=== PATIENT | female | born 1970 | race Caucasian/White ===

== ENCOUNTER 2021-06-12 08:42 | Emergency (ER) | payer OTHER, SELFPAY ==
[2021-06-12 08:55] VITALS: BP 128/86; PULSE 93; RESP 19; TEMP 37.1; O2SAT 94; BMI 34.3
--- NOTE | 2021-06-12 09:06 | XR_ITS ---
WS: [id number] Portable AP upright chest, 06/12/2021 Clinical Data: SOB, COVID + Comparison: None. Findings: No nodules, masses or effusions are seen. The heart is normal. The pulmonary vascularity is not increased. No pneumonia or pneumothorax is seen. XR/XR chest 1V portable [id number] Impression: Negative chest.
--- NOTE | 2021-06-12 09:07 | ED_ITS ---
HPI - COVID General: Chief Complaint: COVID symptoms Stated Complaint: SOB, LOW 02 Time Seen by Provider: 06/12/21 08:51 Triage information: Has fever, cough or shortness of breath . Exposure to COVID + person last 14 days History of Present Illness: HPI Narrative: Covid symptoms since Wednesday. Did test Covid positive with Dr. Garcia's office on Wednesday. Patient is an unvaccinated individual. Said she had lower sats at home but is not requiring oxygen she did contact Dr. Garcia's office via phone and they told her to come to the ER. MD complaint: known COVID positive Prior covid testing: yes, results pending at other location COVID 19 common symptoms: positive fever(s), chills, cough, non-productive cough, dyspnea, body aches and headache(s); negative throat pain, nasal congestion, nausea or vomiting COVID 19 other sytmptoms: negative chest pain Treatment prior to arrival: none COVID Results: No Data to Display Review of Systems Const: Reports: fever(s), chills and body aches Eyes: Denies: change in vision or blurry vision ENMT: Denies: throat pain or nasal congestion Card: Denies: chest pain or dyspnea on exertion Resp: Reports: dyspnea and non-productive cough GI: Denies: abdominal pain, nausea or vomiting Musc: Denies: extremity pain Skin/Breast: Denies: rash Neuro: Reports: headache(s) Psych: Denies: anxiety or depression Ozzy/Lymph: Denies: easy bruising Physical Exam Const: COMMON NORMALS: no acute distress, average body habitus and patient oriented x3 HENMT: COMMON NORMALS: normocephalic HEAD & SCALP: normal to inspection and normocephalic FACE & SINUS: normal facial exam Eye: COMMON NORMALS: conjunctivae normal GENERAL EYE: appearance normal, both eyes and all related structures CONJUNCTIVA: Yes conjunctivae normal Neck/C-Spine: COMMON NORMALS: no JVD Chest: COMMONS NORMALS: normal inspection of the chest Resp: COMMON NORMALS: normal respiratory effort and clear to auscultation bilaterally AUSCULTATION: clear to auscultation bilaterally Cardio: COMMON NORMALS: no JVD, regular rate and regular rhythm RATE: regular rate RHYTHM: regular rhythm GI: COMMON NORMALS: Normal to inspection, nondistended, normoactive bowel sounds present Extremity: COMMON NORMALS: normal to inspection and full ROM Neuro: COMMON NORMALS: patient oriented x3 Course Vital Signs: Vital signs: Vital Signs Temperature 98.7 F 06/12/21 09:19 Pulse Rate 89 06/12/21 10:05 Respiratory Rate 18 06/12/21 09:19 Blood Pressure 130/93 06/12/21 10:05 Pulse Oximetry 95 06/12/21 10:05 MDM - COVID MDM Narrative: Medical decision making narrative: Patient with symptoms for Covid since Wednesday diagnosed positive on Wednesday she called her provider's office today because she said she is feeling shortness of breath advised her she come to the ER. Vital signs are stable. Saturations stayed in the high 90s whole time here. Chest x-ray was negative. Patient already been contacted with Covid hotline through Dr. Garcia's office. Patient is going to pursue getting MCA. Patient discharged home with steroid. COVID Results: No Data to Display Discharge Plan Discharge Patient Disposition: Home Clinical Impression: COVID-19 Condition: Stable Prescriptions: New Decadron 6 mg tablet 6 mg PO DAILY Qty: 7 RF: 0 Discharge Orders: Discharge ED (Routine); Ordered 06/12/21 Ordered By: Nile Burris Referrals: Anibal Garza MD [Primary Care Provider] - Discharge Diet: Usual diet Discharge Activity: Increase activity as tolerated Patient Instructions: COVID-19 (Coronavirus Disease 2019) (ED) Activity Restrictions/Additional Instructions: Follow-up with medical provider as directed. Take medications as prescribed. Return to the ER or your medical provider if condition worsens. Please read and understand discharge instructions. If any questions ask please. Please call the Covid hotline here at the hospital to get set up for monoclonal antibody infusion if you so desire. Coding Level of Care Code ED Cellars Supervisor for Tasha Fwd Exam Comprehensive
[2021-06-12 09:19] VITALS: BP 118/60; PULSE 84; RESP 18; TEMP 37.1; O2SAT 94; O2SAT 95
[2021-06-12 10:05] VITALS: BP 130/93; PULSE 89; O2SAT 95
== END 2021-06-12 10:05 | disposition home or self-care (01) ==
PROVIDERS: Emergency Provider Nurse Practitioner Family; PCP Family Medicine
DX: U07.1 COVID-19 (principal)
CPT/HCPCS: 71045; 99283

== ENCOUNTER 2021-06-13 21:10 | Emergency (ER) | payer OTHER, SELFPAY ==
[2021-06-13 21:31] VITALS: BP 94/61; PULSE 104; RESP 18; TEMP 39.1; O2SAT 94
[2021-06-13] MEDS: acetaminophen 500 mg Tablet 1000 MG PO (22:37)
--- NOTE | 2021-06-13 23:19 | XRR_ITS ---
PROCEDURE INFORMATION: Exam: XR Chest Exam date and time: 06/13/2021 11:19 PM Age: 50 years old Clinical indication: Shortness of breath; Patient HX: Covid +; Symptoms since 06/07. Cough fever short of breath lungs hurt; Additional info: SOB TECHNIQUE: Imaging protocol: XR of the chest. Views: 1 view. COMPARISON: CR XR chest 1V portable [id number] 06/12/2021 9:14 AM FINDINGS: Lungs: Unremarkable. No consolidation. Pleural spaces: Unremarkable. No pleural effusion. No pneumothorax. Heart/Mediastinum: Unremarkable. No cardiomegaly. Bones/joints: Unremarkable. XR/XR chest 1V portable [id number] IMPRESSION: No acute findings. Radiation Dose CTDIVOL = (mGy): DLP = (mGy-cm)
--- NOTE | 2021-06-13 23:20 | ECG_ITS ---
[facility] Test Date: 2021-06-13 Pat Name: Carmela Erazo Department: Room: Gender: Female Hired Help: : 1970 Requested By: Mayito De Leon Order Number: [id number] Jones MD: Oniel Pino M.D. Measurements Intervals [place] Rate: 96 P: 42 NH: 147 QRS: -12 QRSD: 89 T: 31 QT: 321 QTc: 407 Interpretive Statements SINUS RHYTHM POSSIBLE ANTERIOR MYOCARDIAL INFARCTION , OF INDETERMINATE AGE [30 ms Q WAVE IN V3/V4, OR R < 0.2 mV IN V4] INFERIOR MYOCARDIAL INFARCTION , OF INDETERMINATE AGE [40+ ms Q WAVE AND/OR ST/T ABNORMALITY IN II/aVF] No previous ECG available for comparison Electronically Signed On 06-15-2021 13:18:40 GOLD PROSPECTOR by Oniel Pino M.D. [email or web address]
--- NOTE | 2021-06-13 23:21 | ED_ITS ---
HPI - COVID General: Chief Complaint: COVID symptoms Stated Complaint: Covid +, Lungs Hurt\Fever\ Time Seen by Provider: 06/13/21 23:17 Triage information: Has fever, cough or shortness of breath . Exposure to COVID + person last 14 days History of Present Illness: HPI Narrative: Patient is a 50-year-old female comes to the ED with shortness of breath and is Covid positive. Patient was seen here in the ED on June 12. Due to increased shortness of breath. She was discharged home with a prescription for Decadron and set up to have monoclonal antibody infusions and received infusion today. She reports having worsening shortness of breath. She also endorses having some pain in her lungs whenever she takes it deep breath. She is still currently having fevers and had a temperature of 102.4 here in the ED. patient says she has been able to keep fluids down and has not had any episodes of emesis. Patient tested positive for COVID-[address] Garza's office on Wednesday, June 09. Her symptoms first started on June 07. COVID 19 common symptoms: positive fever(s), chills, non-productive cough, dyspnea, fatigue, body aches, nasal congestion, nausea and diarrhea; negative productive cough, headache(s), throat pain or vomiting COVID 19 other sytmptoms: negative chest pain COVID Results: No Data to Display Review of Systems Const: Reports: fever(s), chills, body aches and fatigue Eyes: Denies: change in vision or eye discomfort ENMT: Reports: nasal congestion; Denies: throat pain, odynophagia or nasal discharge Card: Denies: chest pain, palpitations, edema, swelling of feet/ankles, dyspnea on exertion or orthopnea Resp: Reports: dyspnea, non-productive cough and pain on inspiration; Denies: productive cough GI: Reports: nausea and diarrhea; Denies: abdominal pain, vomiting, constipation or hematochezia : Denies: flank pain, dysuria or hematuria Musc: Denies: neck pain, back pain or extremity swelling Skin/Breast: Denies: rash or new lesions Neuro: Denies: headache(s), numbness in extremities or weakness in extremities Physical Exam Const: COMMON NORMALS: no acute distress, patient oriented x3 and alert GENERAL APPEARANCE: cooperative and comfortable HENMT: COMMON NORMALS: normocephalic HEAD & SCALP: normocephalic MOUTH: Normal oral and palatal mucosa present THROAT: posterior oropharynx normal and uvula midline Neck/C-Spine: COMMON NORMALS: supple GENERAL: Yes normal visual inspection Resp: COMMON NORMALS: normal respiratory effort, No retractions, No use of accessory muscles and clear to auscultation bilaterally AUSCULTATION: clear to auscultation bilaterally Cardio: COMMON NORMALS: regular rate, regular rhythm, S1 normal heart sound present, S2 normal heart sound present, No gallops present (Cardio), No clicks present (Cardio), No murmurs present (Cardio) and Peripheral pulses 2+ throughout RATE: regular rate RHYTHM: regular rhythm HEART SOUNDS: S1 normal heart sound present and S2 normal heart sound present PERIPHERAL PULSES: Peripheral pulses 2+ throughout GI: COMMON NORMALS: Normal to inspection, nondistended, normoactive bowel sounds present, Soft to palpation, non-tender and no masses PALPATION: Yes Soft to palpation : COMMON NORMALS: Yes no CVA tenderness BLADDER/KIDNEY EXAM: Yes no CVA tenderness Back/Pelvis: COMMON NORMALS: no CVA tenderness Extremity: COMMON NORMALS: normal to inspection Neuro: COMMON NORMALS: patient oriented x3 and moves all extremities SENSORIUM/ORIENTATION: Yes alert Skin: GENERAL SKIN EXAM: dry skin Course Vital Signs: Vital signs: Vital Signs Temperature 102.4 F H 06/13/21 21:31 Pulse Rate 78 06/14/21 03:34 Respiratory Rate 18 06/14/21 03:34 Blood Pressure 138/76 06/14/21 03:34 Pulse Oximetry 94 06/14/21 03:34 MDM - COVID MDM Narrative: Medical decision making narrative: Patient is a 50-year-old female who comes to the ED with continuing Covid symptoms. She was seen here back on June 12 and diagnosed with COVID-19. She was discharged home on Decadron then and set up for monoclonal antibody infusions. She received a monoclonal antibody infusions today, and comes here to the ED because she still having fever and other Covid symptoms. Patient has a temperature of 102.4 here in the ED rest of vitals are stable. Exam of patient is benign. CBC and CMP were unremarkable. Troponin negative and D-dimer was normal. Chest x-ray showed no acute findings. EKG showed normal sinus rhythm with no acute TX findings. Patient was given 1 L of IV fluids, Tylenol and Zofran while here in the ED and her symptoms did improve. Patient was stable for discharge home and diagnosed with COVID-19. She was sent home with a prescription for azithromycin and Zofran for nausea. told to continue taking her Decadron. She was given strict return to ED precautions. Follow-up with PCP in 5 to 7 days reevaluation. Patient understood and agree with plan. Lab Data: Attestation: I reviewed the patient's lab results. Labs: Lab Results 06/13/21 06/13/21 06/13/21 23:40 23:40 23:40 WBC 7.6 10^3/uL 10^3/ uL (4.0-10.0) RBC 4.43 10^6/uL 10^6 /uL (4.1-5.3) Hgb 13.9 g/dL g/dL (11.5-15.3) Hct 42.4 % % (37.0-47.0) MCV 95.7 fl fl (81-99) MCH 31.4 pg pg (28.0-34.0) MCHC 32.8 g/dL g/dL (30.0-36.0) RDW 11.9 % L % (12.1-15.1) Plt Count 206 10^3/cmm 10^3 /cmm (130-400) MPV 9.8 fL fL (7.4-10.4) Neut % (Auto) 79.0 % % Lymph % (Auto) 16.3 % % [place] % (Auto) 4.3 % % Eos % (Auto) 0.0 % % Baso % (Auto) 0.1 % % Neut # (Auto) 6.03 10^3/uL 10^3 /uL (1.8-7.7) Lymph # (Auto) 1.2 10^3/uL 10^3/ uL (0.8-4.8) [place] # (Auto) 0.3 10^3/uL 10^3/ uL (0.2-0.9) Eos # (Auto) 0.0 10^3/uL 10^3/ uL (0.0-0.8) Baso # (Auto) 0.0 10^3/uL 10^3/ uL (0.0-0.1) Nucleated RBC % (a uto) 0 % % Nucleated RBCs # 0.0 /100WBC /100W BC D-Dimer 0.50 ug/mIFEU ug/ mIFEU (0-0.59) Sodium 134 mmol/L L mmol /L (136-145) Potassium 3.7 mmol/L mmol/L (3.5-5.1) Chloride 96 mmol/L L mmol/ L (98-107) Carbon Dioxide 26 mmol/L mmol/L (22-29) Anion Gap 15.7 (5-19) BUN 13 mg/dL mg/dL (6-20) Creatinine 0.9 mg/dL mg/dL (0.5-0.9) GFR Calculation 66.3 mL/min L mL/ min (90-130) Glucose 110 mg/dL mg/dL (65-115) Calculated Osmolal ity 279 mOsm/kg L mOs m/kg (285-295) Calcium 8.1 mg/dL L mg/dL (8.5-10.5) Total Bilirubin 0.2 mg/dL mg/dL (0.15-1.2) AST 29 U/L U/L (0-32) ALT 27 U/L U/L (0-33) Alkaline Phosphata se 48 IU/L IU/L (35-105) Troponin T Gen 5 n g/L Total Protein 6.7 g/dL g/dL (6.6-8.7) Albumin 4.1 g/dL g/dL (3.5-5.2) Globulin 2.6 g/dL g/dL (1.3-4.6) 06/13/21 23:40 WBC RBC Hgb Hct MCV MCH MCHC RDW Plt Count MPV Neut % (Auto) Lymph % (Auto) [place] % (Auto) Eos % (Auto) Baso % (Auto) Neut # (Auto) Lymph # (Auto) [place] # (Auto) Eos # (Auto) Baso # (Auto) Nucleated RBC % (a uto) Nucleated RBCs # D-Dimer Sodium Potassium Chloride Carbon Dioxide Anion Gap BUN Creatinine GFR Calculation Glucose Calculated Osmolal ity Calcium Total Bilirubin AST ALT Alkaline Phosphata se Troponin T Gen 5 n g/L 9 ng/L ng/L (0-10) Total Protein Albumin Globulin Imaging Data: CXR: Attestation: I personally reviewed and interpreted this imaging study as follows: Radiologist's impression: [address] [address] XRay Report Signed Patient: Carmela Erazo Unit #: [id number] : 1970 Age/Sex: 50 / F ADM Date: 06/13/21 Loc: ER Room/Bed: Attending Dr: Ordering Provider/Ordering MD: Mayito De Leon Date of Service: 06/13/21 Procedure(s): XR chest 1V portable [id number] Accession Number(s): [id number] Report Number: [id number] PROCEDURE INFORMATION: Exam: XR Chest Exam date and time: 06/13/2021 11:19 PM Age: 50 years old Clinical indication: Shortness of breath; Patient HX: Covid +; Symptoms since 06/07. Cough fever short of breath lungs hurt; Additional info: SOB TECHNIQUE: Imaging protocol: XR of the chest. Views: 1 view. COMPARISON: CR XR chest 1V portable [id number] 06/12/2021 9:14 AM FINDINGS: Lungs: Unremarkable. No consolidation. Pleural spaces: Unremarkable. No pleural effusion. No pneumothorax. Heart/Mediastinum: Unremarkable. No cardiomegaly. Bones/joints: Unremarkable. XR/XR chest 1V portable [id number] IMPRESSION: No acute findings. Radiation Dose CTDIVOL = (mGy): DLP = (mGy-cm) Dictated By: Choco Eastman Signed By: Choco Eastman Signed Date/Time: 06/14/21 0047 DD/ 2319 EKG Data: EKG 1: Attestation: I personally reviewed and interpreted this EKG as follows: EKG interpretation date: 06/14/21 Interpretation: Normal sinus rhythm, 96 bpm, no ST segment elevation or depression seen. COVID Results: No Data to Display Discharge Plan Discharge Patient Disposition: Home Clinical Impression: COVID-19 Condition: Stable Prescriptions: New azithromycin 250 mg tablet See Rx Instructions .ROUTE .COMPLEX Qty: 6 RF: 0 ondansetron 4 mg tablet,disintegrating 4 mg PO Q8H PRN (Reason: nausea and vomiting) Qty: 20 RF: 0 No Action dexamethasone [Decadron] 6 mg tablet 6 mg PO DAILY Qty: 7 RF: 0 Discharge Orders: Discharge ED (Routine); Ordered 06/14/21 Ordered By: Mayito De Leon Referrals: Anibal Garza MD [Primary Care Provider] - Discharge Diet: Regular Discharge Activity: Increase activity as tolerated Patient Instructions: Viral Syndrome (ED) Activity Restrictions/Additional Instructions: Follow-up with medical provider as directed in 5 to 7 days for evaluation. Take medications as prescribed. Take [id number] Tylenol or Motrin to help with any fevers. Make sure you drink plenty of fluids and stay hydrated. Return to the ER or your medical provider if condition worsens. Please read and understand discharge instructions. Thank you for choosing [facility] for your healthcare needs today. Please realize this is an emergency room and that we are providing you with a medical screening exam and this may not be complete and all inclusive of all the testing and or work up that you may need to determine your ailment or severity of your illness. It is very important that you follow up as instructed or that you return to the Emergency Department should you have concerns or if your condition changes or worsens in any way. Coding Level of Care Code ED Electrochemist for Tasha Fwd Exam Comprehensive
[2021-06-14] VITALS: O2SAT 94
[2021-06-14 00:05] LABS: Basophils % 0.1 %; Hematocrit 42.4 % (37.0-47.0); Hemoglobin 13.9 g/dL (11.5-15.3); Lymphocytes # 1.2 10^3/uL (0.8-4.8); Lymphocytes % 16.3 %; Mean Corpuscular HGB Conc 32.8 g/dL (30.0-36.0); Mean Corpuscular Hemoglobin 31.4 pg (28.0-34.0); Mean Corpuscular Volume 95.7 fl (81-99); Mean Platelet Volume 9.8 fL (7.4-10.4); Monocytes # 0.3 10^3/uL (0.2-0.9); Monocytes % 4.3 %; Neutrophils # 6.03 10^3/uL (1.8-7.7); Nucleated Red Blood Cells % 0 %; Platelet Count 206 10^3/cmm (130-400); Red Blood Count 4.43 10^6/uL (4.1-5.3); Red Cell Distribution Width 11.9 % (12.1-15.1); White Blood Count 7.6 10^3/uL (4.0-10.0)
[2021-06-14 00:22] LABS: Troponin T (5th) Once 9 ng/L (0-10)
[2021-06-14 00:24] LABS: Alanine Aminotransferase 27 U/L (0-33); Albumin Level 4.1 g/dL (3.5-5.2); Alkaline Phosphatase 48 IU/L (35-105); Anion Gap 15.7 (5-19); Aspartate Amino Transferase 29 U/L (0-32); Blood Urea Nitrogen 13 mg/dL (6-20); Calcium 8.1 mg/dL (8.5-10.5); Carbon Dioxide 26 mmol/L (22-29); Chloride 96 mmol/L (98-107); Creatinine Clr Calc Pharmacy 81.5849; Globulin 2.6 g/dL (1.3-4.6); Glomerular Filtration Rate 66.3 mL/min (90-130); Glucose 110 mg/dL (65-115); Osmolality Calculated 279 mOsm/kg (285-295); Potassium 3.7 mmol/L (3.5-5.1); Sodium 134 mmol/L (136-145); Total Bilirubin 0.2 mg/dL (0.15-1.2); Total Protein 6.7 g/dL (6.6-8.7)
[2021-06-14] MEDS: sodium chloride 0.9% 1,000 ML 999 ML IV (00:51)
[2021-06-14] MEDS: ondansetron 2 mg/ML SDV 2 mL 4 MG IVP (01:20)
[2021-06-14] MEDS: ketorolac 30 mg/mL INJ IVP (02:05)
[2021-06-14 03:34] VITALS: BP 138/76; PULSE 78; RESP 18; O2SAT 94
== END 2021-06-14 02:39 | disposition home or self-care (01) ==
PROVIDERS: Emergency Provider Physician Assistant; PCP Family Medicine
DX: U07.1 COVID-19 (principal)
CPT/HCPCS: 71045; 80053; 84484; 85025; 85378; 87040; 93005; 96361; 96374; 96375; 99284; J1885; J2405; J7030